=== PATIENT | male | born 1975 | race Caucasian/White ===

== ENCOUNTER 2024-02-22 14:17 | Emergency (ER) | payer OTHER, SELFPAY ==
[2024-02-22 14:28] VITALS: BP 167/103
[2024-02-22 15:00] LABS: % Basophils 0.5 % (0-2); % Eosinophils 5.5 % (0-6); % Immature Granulocytes 0.2 % (0-0.5); % Lymphocytes 39.8 % (20.5-51.1); % Monocytes 8.5 % (1.7-9.3); % Neutrophils 45.5 % (42.2-75.2); Absolute Eosinophils 0.3 10^3/uL (0-0.7); Absolute Lymphocytes 2.5 10^3/uL (1.2-3.4); Absolute Monocytes 0.5 10^3/uL (0.1-0.6); Absolute Neutrophils 2.8 10^3/uL (1.4-6.5); Hematocrit 43.1 % (39.0-52.0); Hemoglobin 14.2 g/dL (13.0-18.0); Mean Corp Hgb Conc. 32.9 g/dL (33.0-37.0); Mean Corpuscular Hgb 29.3 pg (27.0-31.0); Mean Corpuscular Volume 88.9 fL (80.0-94.0); Mean Platelet Volume 10.4 fL (7.4-10.4); Nucleated Red Blood Cells % 0 % (-); Platelet Count 218 10^3/uL (130-400); Red Blood Cell Count 4.85 10^6/uL (4.70-6.10); Red Cell Dist. Width 12.1 % (11.5-14.5); White Blood Cell Count 6.2 10^3/uL (4.8-10.8)
[2024-02-22 15:14] LABS: ALT (SGPT) 30 U/L (0-50); AST (SGOT) 25 U/L (17-59); Albumin 4.7 g/dl (3.5-5.0); Alkaline Phosphatase 63 U/L (38-126); Blood Urea Nitrogen 14 mg/dl (9-20); Calcium 9.8 mg/dl (8.4-10.2); Carbon Dioxide 28 mmol/L (22-30); Chloride 102 mmol/L (98-107); Glucose 88 mg/dl (70-99); Potassium 3.8 mmol/L (3.5-5.1); Sodium 139 mmol/L (135-145); Total Bilirubin 0.5 mg/dl (0.2-1.3); Total Protein 7.1 g/dl (6.3-8.2); eGFR > 60.00
[2024-02-22 15:23] LABS: Troponin I < 0.012 ng/ml
--- NOTE | 2024-02-22 18:28 | ED.GENMED ---
History of Present Illness
General
Chief Complaint: Chest Pain
Source: patient
Exam Limitations: none
Time Seen by Provider: 02/22/24 18:02
History of Present Illness
History of Present Illness:
48yoM with a history of GERD presenting for evaluation of palpitations. Symptoms initially started yesterday afternoon while he was trying to take a nap. He states his heart beat feels normal but he is able to feel the sensation of his heart beating
which is new for him. He is also having the sensation of feeling like the blood is rushing to his head. He was seen at urgent care prior to arrival and was sent to the ED for evaluation. Patient denies any chest pain/tightness, shortness of breath,
dizziness, syncope.
Past History
Past History
ED Past Medical History: GERD
ED Past Surgical History: Appendectomy
Social History
Tobacco: Vaping
Alcohol: None
Drug: None
Personal:
Living: with family
Employment: Employed
Family History
Family History: Other (No history of kidney stones)
Phy Exam
General Physical Exam
General Presentation: well appearing and no apparent distress
General age: appears stated age
General Skin: warm and dry
General Habitus: normal
General Mental: alert
ENT Exam
ENT Exam: normocephalic
Additional ENT: No carotid bruit
Cardiovascular Exam
Cardiovascular Exam: regular rate/rhythm, no edema, no murmur and normal peripheral pulses
Pulmonary Exam
Pulmonary Exam: lungs clear, no respiratory distress, no rales, no crackles and no rhonchi
Neurological Exam
Neurological Exam: alert
Carey Coma Scale
Eye Opening: Spontaneous
Verbal Response: Oriented
Motor Response: Obeys Commands
GCS Total Score: 15
Skin Exam
Skin Exam: normal color and warm/dry
Psychiatric Exam
Psychiatric Exam: normal mood/affect
Scores
Heart Score for Chest Pain Patients
STEMI patient?: No
History: Slightly or Non-Suspicious
ECG: Normal
Age: >45 - <65 years
Risk Factors: No Risk Factors
Troponin: </= Normal Limit
Heart Score for Chest Pain Patients: 1
Heart Score Risk: 2.5% MACE over next 6 weeks
Course
Orders/Labs/Results
Orders:
Orders
02/22/24 14:19
EKG [Electrocardiogram (*1)] Urgent
Reason for Study: Chest Pain
02/22/24 14:20
EKG- Treatment ONCE
02/22/24 14:37
Complete Blood Count/With Diff Urgent
Comprehensive Metabolic Panel Urgent
Magnesium Urgent
TSH Urgent
Comment: ADD ON
Troponin I Urgent
02/22/24 18:28
Add On- LAB Urgent
Tests Added?: TSH, magnesium
Cardiac Monitoring- Treatment ONCE
02/22/24 18:29
Electrocardiogram (*1) Urgent
Reason for Study: Palpitations
EKG- Treatment ONCE
02/22/24 18:48
Troponin I Urgent
Abnormal Lab Results
02/22/24
14:37
MCHC 32.9 L g/dL
(33.0-37.0)
02/22/24 14:37
02/22/24 14:37
Vital Signs
Initial and Last Documented VS:
Initial Vital Signs
Temp Pulse Resp BP Pulse Ox
98.5 F 82 18 167/103 100
02/22/24 14:28 02/22/24 14:28 02/22/24 14:28 02/22/24 14:28 02/22/24 14:28
Last Documented Vital Signs
Temp Pulse Resp BP Pulse Ox
98.5 F 74 17 128/92 98
02/22/24 14:28 02/22/24 19:15 02/22/24 19:15 02/22/24 19:00 02/22/24 19:15
MDM/Problems Addressed
Differential Diagnosis Includes:
48yoM here with palpitations that began yesterday. Feels blood rushing to his head. Sent here by urgent care. No associated CP/SOB/syncope. He is afebrile and hemodynamically stable. He is well-appearing in no acute distress. Exam is reassuring.
Differential diagnosis includes but is not limited to: Arrhythmia, ACS, thyroid dysfunction, electrolyte abnormality
Initial ED plan: Cardiac labs and EKG obtained in triage. EKG shows normal sinus rhythm without ischemic changes or ectopy. Labs overall unremarkable including normal troponin. Will check repeat EKG/troponin as well as TSH.
*EKG
Interpreted by ED Provider?: Yes
EKG Intrepretation Date: 02/22/24
Heart Rate: 78
Rate: normal
Rhythm: sinus
[place]: normal axis
Interval: normal interval
QRS Pattern: normal QRS
Ischemia: no ischemia
*Critical Care Note
Total Time (30-74mins, 75-104mins- exclusive of procedures): Not Applicable
Update Note
Update Note:
Delta troponin/EKG unchanged. Magnesium and TSH within normal limits. No telemetry events noted on cardiac monitoring. No indication for hospitalization at this time. Advised close follow-up with PCP and ED return precautions discussed. Patient
in agreement with plan and was discharged in stable condition.
ED Attending Note
-
Portions of this chart may have been created with voice recognition software.� Occasional wrong word or��sound alike� substitutions may have occurred due to the inherent limitations of voice recognition software.
Discharge Plan
Departure
Patient Disposition: Home (Routine Discharge)
Date of Disposition: 02/22/24
Time of Disposition: 19:35
Patient with high blood pressure during this ER visit?: No
Discharge Problem:
Palpitations
Instructions: Palpitations ED
Prescriptions:
No Action
ibuprofen 600 MG tablet
600 mg PO Q6 Qty: 20 0RF
amoxicillin-pot clavulanate 1 TABLET tablet
1 tab PO Q12 Qty: 14 0RF
ondansetron 4 MG tablet,disintegrating
4 mg PO Q8 Qty: 10 0RF
Referrals:
Cholo Hutchinson, DO [Family Provider] -
Activity Restrictions/Additional Instructions:
Please call your family doctor tomorrow to schedule a follow-up appointment. Return to the ER with any new or worsening symptoms.
Interventions
Interventions:
*Risk Screen - Suicide Last Done: 02/22/24 14:28
*General Assessment Last Done: 02/22/24 14:28
*Neglect/Abuse Screening Last Done: 02/22/24 14:28
ED- Fall Risk Assessment Last Done: 02/22/24 19:30
*ED COVID-19 Vaccine History Last Done: 02/22/24 14:28
*Nursing Disposition Last Done: 02/22/24 19:41
ED- Cardiac Assessment Last Done: 02/22/24 19:30
Discharge Date and Time
Discharge Date/Time: 02/22/24 19:41
Print Language: [id number]
[2024-02-22 18:38] VITALS: BMI 27.1
[2024-02-22 18:44] LABS: Magnesium 2.2 mg/dl (1.6-2.3)
[2024-02-22 18:49] VITALS: BP 146/96
[2024-02-22 19:00] VITALS: BP 128/92
--- NOTE | 2024-02-22 19:00 | EDRN ---
Report received patient resting comfortably, a repeat troponin is sent and will update patient
[2024-02-22 19:21] LABS: Troponin I < 0.012 ng/ml
[2024-02-22 19:24] LABS: TSH 2.26 uIU/ml (0.47-4.68)
== END 2024-02-22 19:41 | disposition home or self-care (01) ==
LOC: EMR 14:17
PROVIDERS: Emergency Medicine; Physician Assistant; EMERGENCY PHYSICIAN Student in an Organized Health Care Education/Training Program; FAMILY PHYSICIAN Family Medicine
DX: R00.2 Palpitations (principal); K21.9 Gastro-esophageal reflux disease without esophagitis; F17.290 Nicotine dependence, other tobacco product, uncomplicated; Z90.49 Acquired absence of other specified parts of digestive tract
CPT/HCPCS: 99284; 80053; 83735; 84443; 84484; 85025; 93005

== ENCOUNTER 2024-12-14 06:29 | Day surgery (SDC) | payer OTHER, SELFPAY | END 2024-12-14 12:37 | disposition home or self-care (01) | LOC: GI 06:29 | PROVIDERS: ATTENDING PHYSICIAN Internal Medicine Gastroenterology | DX: R12 Heartburn (principal); K44.9 Diaphragmatic hernia without obstruction or gangrene; K22.89 Other specified disease of esophagus; Z80.0 Family history of malignant neoplasm of digestive organs; K20.0 Eosinophilic esophagitis | CPT/HCPCS: 43239; 88305; 88342 ==